=== PATIENT | female | born 1950 | race Caucasian/White ===

== ENCOUNTER 2022-08-14 19:30 | Inpatient (IN) | payer OTHER, MEDICARE ==
[~2022-08-14] VITALS: Ht 165.1 cm; Wt 68.3 kg
[2022-08-14 19:53] LABS: BASOPHILS ABSOLUTE AUTO 0.02 K/mm3 (0.00-0.23); BASOPHILS PERCENT AUTO 0 % (0-2); EOSINOPHILS PERCENT AUTO 0 % (0-6); Hematocrit 36.8 % (33.0-51.0); Hemoglobin 12.6 g/dL (11.5-16.0); IMMATURE GRAN ABSOLUTE AUTO 0.04 K/mm3 (0.00-0.10); IMMATURE GRAN PERCENT AUTO 1 % (0-1); LYMPHOCYTES ABSOLUTE AUTO 1.71 K/mm3 (0.84-5.20); LYMPHOCYTES PERCENT AUTO 20 % (21-46); MONOCYTES ABSOLUTE AUTO 0.56 K/mm3 (0.16-1.47); MONOCYTES PERCENT AUTO 7 % (4-13); Mean Corpuscular HGB 34.3 pg (26.0-34.0); Mean Corpuscular HGB Conc 34.2 g/dL (31.5-36.5); Mean Corpuscular Volume 100 fL (80-100); Mean Platelet Volume 8.4 fL (9.1-12.4); NEUTROPHILS ABSOLUTE AUTO 6.09 K/mm3 (1.96-9.15); NEUTROPHILS PERCENT AUTO 72 % (41-73); Platelet Count 382 K/mm3 (150-400); RDW Coefficient Variation 16.7 % (11.7-14.2); RDW Standard Deviation 61.9 fL (35.1-46.3); Red Blood Cell Count 3.67 M/mm3 (3.80-5.20); White Blood Cell Count 8.42 K/mm3 (4.00-11.30)
[2022-08-14 20:12] LABS: Albumin, Blood 2.6 g/dL (3.4-5.0); Albumin/Globulin Ratio 0.8 (0.8-1.8); Bilirubin, Total 1.3 mg/dL (0.1-1.0); Bun/Creatinine Ratio 25.6 (12.0-20.0); Calcium, Blood 8.9 mg/dL (8.5-10.1); Creatinine, Blood 0.86 mg/dL (0.40-1.00); Globulin, Blood 3.4 g/dL (2.2-4.0); Potassium, Blood 4.4 mmol/L (3.5-5.5)
[2022-08-14 20:12] LABS: Source, Urine Clean Catch
[2022-08-14 20:27] LABS: Appearance, Urine Turbid (Clear); Bilirubin, Urine Neg (Neg); Blood, Urine Neg (Neg); Color, Urine Yellow (P-Yellow); Glucose Qualitative, Urine Neg (Neg); Ketones, Urine 2+ (Neg); Leukocyte Esterase, Urine Neg (Neg); Nitrite, Urine Pos (Neg); Protein, Urine Neg (Neg); Specific Gravity, Urine 1.015 (1.003-1.022); Urobilinogen, Urine NORM (Normal)
[2022-08-14 20:41] LABS: Amorphous Heavy (0-Heavy); Bacteria Many /hpf; Mucus Light (0-Heavy); Red Blood Cells, Urine 0-2 /hpf (0-2); Squamous Epithelial Cells Mod /hpf (Few)
[2022-08-14 20:42] LABS: Transitional Epithelial Cells Rare /hpf (0-Rare)
[2022-08-14] MEDS ORDERED: BUDESONIDE EC3 M6 PO (21:21)
[2022-08-14] MEDS ORDERED: ATOR10 PO (21:22)
[2022-08-14] MEDS ORDERED: CYCL10 PO (21:22)
[2022-08-14] MEDS ORDERED: ELIQUIS5 M2 PO (21:23)
[2022-08-14] MEDS ORDERED: Purinethol50 MG (21:23)
[2022-08-14] MEDS ORDERED: PANT40 PO (21:23)
[2022-08-14] MEDS ORDERED: Prinivil10 MG PO (21:35)
[2022-08-14] MEDS ORDERED: SPIR25 PO (21:36)
[2022-08-14] MEDS ORDERED: METO50ER PO (21:36)
[2022-08-14] MEDS ORDERED: MAGNESIUM OXIDE (21:37)
--- NOTE | 2022-08-15 05:03 | NUR ---
SHIFT SUMMARY PT ARRIVED TO THE FLOOR AT APPROX 0130, A/O X4 AND STAND BY ASSIST TO BATHROOM. PT REPORTS ABDOMINAL PAIN, TREATED W/ IV PAIN MEDICATIONS. REPORTS PASSING FLATUS, HYPOACTIVE BOWEL TONES. CONTINUED NPO STATUS. VITAL SIGNS STABLE. WILL CONTINUE TO MONITOR AND REPORT TO ONCOMING RN.
[2022-08-15 07:38] LABS: Hematocrit 34.4 % (33.0-51.0); Hemoglobin 11.7 g/dL (11.5-16.0); Mean Corpuscular HGB 34.1 pg (26.0-34.0); Mean Corpuscular Volume 100 fL (80-100); Mean Platelet Volume 8.5 fL (9.1-12.4); Platelet Count 323 K/mm3 (150-400); RDW Coefficient Variation 16.9 % (11.7-14.2); RDW Standard Deviation 61.8 fL (35.1-46.3); Red Blood Cell Count 3.43 M/mm3 (3.80-5.20)
[2022-08-15 07:53] LABS: Bun/Creatinine Ratio 25.1 (12.0-20.0); Calcium, Blood 8.3 mg/dL (8.5-10.1); Creatinine, Blood 0.76 mg/dL (0.40-1.00); Potassium, Blood 4.3 mmol/L (3.5-5.5)
--- NOTE | 2022-08-15 16:05 | NUR ---
SHIFT SUMMARY SBO PT HAS BEEN UP AND AMBULATING TO RESTROOM TO VOID, STRONG IN SMELL. PT DENIES ANY PAIN WITH URINATING OR URGENCY WITH VOIDING. SHE WALKS WELL WITH SUPPORT OR FWW. USES CANE AT HOME. SPASMATIC PAINS THAT SUBSIDE QUICKLY BUT REPORTED AT 10/10 WHEN OCCURING. DENIES FLATUS, NO BOWEL MOVEMENT. BOWEL SOUNDS REMAIN HYPOACTIVE.
--- NOTE | 2022-08-15 17:16 | NUR ---
1605 ASSUMED CARE OF PATIENT. PT LYING IN BED READING A BOOK. PT DENIES NAUSEA, REPORTS ONLY MILD ABD DISCOMFORT AT THIS TIME
--- NOTE | 2022-08-16 04:54 | NUR ---
SUMMARY NO NRE ISSUES NOTED. PT DENIES PAIN OR N/V. PT HAS BEEN VOIDING AND PASSING GAS. PT SLEPT THROUGHOUT SHIFT WITHOUT ISSUE. CALL LIGHT IN REACH.
--- NOTE | 2022-08-16 17:31 | NUR ---
enrique diet without nausea, reports feels like stomach is "rumbling" but denies pain. pt hopeful to be discharged in am. pt up to bathroom with standby assist
--- NOTE | 2022-08-17 05:19 | NUR ---
SHIFT SUMMARY PT A&OX4, PLEASANT AND COOPERATIVE WITH CARE. NO ACUTE CHANGES, VSS. NO PAIN COVERAGE NEEDED THIS SHIFT. TOLERATING FULL LIQUIDS WITHOUT NAUSEA. 1-ASSIST WITH FWW TO BATHROOM. CALLS APPROPRIATELY, CALL LIGHT WITHIN REACH.
[2022-08-17] MEDS ORDERED: PROBIOTIC1 EA13 PO (10:37)
[2022-08-17] MEDS ORDERED: AMOCLA500 PO (10:37)
[2022-08-17] MEDS ORDERED: Prednisone10 MG PO (10:38)
[2022-08-17] MEDS ORDERED: PSYLLIUM FIBER0.4 GM PO (10:40)
--- NOTE | 2022-08-17 11:30 | NUR ---
DISCHARGE SUMMARY PT A&OX4, VSS/RA, BASIL PO FLD, AMB INDEPENDENTLY/SHOWERED SELF/DRESSED SELF, DENIES PAIN, IV DC'D. DC INS PROVIDED. PT AND DAUGHTER REP UNDERSTANDING THOSE INSTRUCTIONS INCLUDING MEDS FAXED TO [facility] FOR [employer] HEL[employer]. LEFT FLOOR VIA WC TO GO HOME WITH DAUGHTER AND TAE, WITH ALL PERSONAL POSSESSIONS.
== END 2022-08-17 10:59 | disposition home or self-care (01) | DRG 386 ==
LOC: ER 19:30 → SURS 08-15 00:40
PROVIDERS: Physician Assistant; ADMIT Internal Medicine
DX: K50.912 Crohn's disease, unspecified, with intestinal obstruction (principal); E87.1 Hypo-osmolality and hyponatremia; I48.20 Chronic atrial fibrillation, unspecified; Z28.21 Immunization not carried out because of patient refusal; J44.9 Chronic obstructive pulmonary disease, unspecified; T38.0X5A Adverse effect of glucocorticoids and synthetic analogues, initial encounter; R73.9 Hyperglycemia, unspecified; B96.20 Unspecified Escherichia coli [E. coli] as the cause of diseases classified elsewhere; I10 Essential (primary) hypertension; I48.0 Paroxysmal atrial fibrillation; M62.838 Other muscle spasm; Z90.49 Acquired absence of other specified parts of digestive tract; Z90.710 Acquired absence of both cervix and uterus; Z79.01 Long term (current) use of anticoagulants; Z79.899 Other long term (current) drug therapy
CPT/HCPCS: 36415; 74177; 80048; 80053; 81001; 83690; 85025; 85027; 87077; 87086; 87186; 96374-59; 99285-25; A9270; C9113; J2270; J2543; J2930; J3010; J7120; Q9967